=== PATIENT | female | born 1970 | race Caucasian/White ===

== ENCOUNTER 2017-11-12 12:31 | Emergency (ER) | payer OTHER ==
[2017-11-12 13:41] VITALS: BP 130/79
--- NOTE | 2017-11-12 15:06 | UC ---
Respiratory Complaint HPI - HPI Summary HPI Summary: PT WENT FOR A RUN TODAY. AFTERWARDS WHEN SHE GOT BACK INTO HER CAR SHE SNEEZED AND DEVELOPED ITCHY WATER EYES AND HER EYELIDS SWELLED UP. NO RESPIRATORY INVOLVEMENT, TONGUE/LIP SWELLING. NO CP, VISUAL DISTURBANCE, THOMAS, NAUSEA, DIZZINESS. SINCE BEING HERE AND WAITING TO BE SEEN HER SX ARE MUCH IMPROVED. EYE IRRITATION IS ALMOST COMPLETELY RESOLVED. EYELID EDEMA IS SIGNIFICANTLY IMPROVED. - History of Current Complaint Chief Complaint: UCAllergicReaction Stated Complaint: ALLERGIC REACTION Time Seen by Provider: 11/12/17 14:55 Hx Obtained From: Patient Onset/Duration: Sudden Onset, Lasting Hours, Still Present - BUT MUCH IMPROVED Timing: Constant Severity Initially: Moderate Severity Currently: Mild Pain Intensity: 0 Pain Scale Used: 0-10 Numeric Aggravating Factors: Allergens Alleviating Factors: Spontaneous Resolution Associated Signs And Symptoms: Negative: Dyspnea, Wheezing, Hemoptysis, Dizziness, URI, Nasal Congestion - Allergies/Home Medications Allergies/Adverse Reactions: Allergies Allergy/AdvReac Type Severity Reaction Status Date / Time No Known Allergies Allergy Verified 11/12/17 13:41 PMH/Surg Hx/FS Hx/Imm Hx Previously Healthy: Yes - Surgical History Surgical History: None - Family History Known Family History: Negative: Hypertension - Social History Alcohol Use: None Substance Use Type: None Smoking Status (MU): Never Smoked Tobacco Review of Systems Constitutional: Negative Eyes: Drainage, Eye Redness, Other - EYELID EDEMA ENT: Negative Respiratory: Negative Cardiovascular: Negative Gastrointestinal: Negative All Other Systems Reviewed And Are Negative: Yes Physical Exam Triage Information Reviewed: Yes Appearance: Well-Appearing, No Pain Distress, Well-Nourished Vital Signs: Initial Vital Signs Temp 100.6 F 11/12/17 13:38 Pulse 109 11/12/17 13:38 Resp 18 11/12/17 13:38 BP 130/79 11/12/17 13:38 Pulse Ox 100 11/12/17 13:38 Vital Signs Reviewed: Yes Eyes: Positive: Conjunctiva Clear, Other: - UPPER AND LOWER EYELID EDEMA (LOWER> UPPER). PERRL, EOMI.. Negative: Discharge ENT: Positive: Hearing grossly normal, Pharynx normal, TMs normal Neck: Positive: Supple, Nontender, No Lymphadenopathy Respiratory Exam: Normal Cardiovascular Exam: Normal Abdomen Description: Positive: Soft Musculoskeletal: Positive: No Edema Neurological: Positive: Alert Psychological: Positive: Age Appropriate Behavior Skin: Negative: rashes UC Diagnostic Evaluation - Laboratory O2 Sat by Pulse Oximetry: 100 Respiratory Course/Dx - Course Course Of Treatment: REPEAT TEMP AT D/C 99.5. INITIAL TEMP TAKEN ON ARRIVAL - PT WAS ANXIOUS, HOT AND WEARING A HAT. SX IMPROVED WHILE WAITING TO BE SEEN. EYELID EDEMA IMPROVED, EYE IRRITATION IMPROVED. PT DECLINES TX WITH PREDNISONE. WILL TAKE OTC ANTIHISTAMINES. - Differential Dx/Diagnosis Provider Diagnoses: ENVIRONMENTAL ALLERGIES Discharge - Discharge Plan Condition: Stable Disposition: HOME Patient Education Materials: Allergies (ED) Referrals: Reny Smalls MD [Primary Care Provider] - If Needed Additional Instructions: YOUR SYMPTOMS ARE MUCH IMPROVED SINCE ARRIVAL. TAKE OTC ANTIHISTAMINE DAILY (CLARITIN (LORATADINE), ZYRTEC (CETIRIZINE) OR MERI (FEXOFENADINE) IN THE MORNING, 25-50MG BENADRYL AT NIGHT). GO TO THE ER WITHOUT FAIL IF YOU DEVELOP ANY RESPIRATORY DIFFICULTY, TONGUE/LIP SWELLING, CHEST PAIN OR ANY OTHER CONCERNING SYMPTOMS. IF YOU HAVE RECURRENT EPISODES CONSIDER EVALUATION BY AN [employer] DUTY MANAGER. [facility] Address: [address], [place] [address] [facility] [address] [place] [address] [address], [address] [place], [place] [address]
== END 2017-11-12 15:16 | disposition home or self-care (01) ==
LOC: UCEAST 12:31
DX: J30.9 Allergic rhinitis, unspecified (principal)
CPT/HCPCS: 99211; G0463